=== PATIENT | female | born 1990 | race Two or more races ===

== ENCOUNTER 2021-11-21 17:00 | Observation (INO) | payer SELFPAY ==
[~2021-11-21] VITALS: Ht 165.1 cm; Wt 86.2 kg
[2021-11-21] MEDS ORDERED: TERBUTALINE SULFATE 1 MG/ML 1ML VIAL SC ONE (18:29)
[2021-11-21] MEDS ORDERED: LACTATED RINGER'S 1,000 ML IV ONE (18:30)
[2021-11-21] MEDS ORDERED: LACTATED RINGER'S 1,000 ML IV SCH (18:30)
[2021-11-21] MEDS: TERBUTALINE SULFATE 1 MG/ML 1ML VIAL SC SCH ×3 (18:33→19:46)
[2021-11-21 19:32] LABS: Basophils # (auto) 0 10 ^3/uL (0-0.2); Basophils % (auto) 0.2 % (0.0-2.0); Eosinophils # (auto) 0 10 ^3/uL (0-0.8); Eosinophils % (auto) 0.4 % (0.0-7.0); Hematocrit 37.5 % (36.0-46.0); Hemoglobin 12.1 g/dL (12.2-16.2); Lymphocytes # (auto) 2.9 10 ^3/uL (0.4-5.4); Lymphocytes % (auto) 25.5 % (10.0-50.0); Mean Corpuscular Hemoglobin 29.3 pg (28.0-32.0); Mean Corpuscular Hgb Conc. 32.3 g/dL (32.0-36.0); Mean Corpuscular Volume 90.8 fL (80.0-100.0); Monocytes # (auto) 0.8 10 ^3/uL (0-1.3); Monocytes % (auto) 7.3 % (0.0-12.0); Neutrophils # (auto) 7.5 10 ^3/uL (1.6-8.6); Neutrophils % (auto) 66.6 % (37.0-80.0); Nucleated Red Blood Cells % 0.1 %; Red Blood Cells 4.12 10^6/uL (4.0-5.20); Red Cell Distribution Width 13.6 % (11.8-14.3); White Blood Cell 11.3 10^3/uL (4.4-10.8)
[2021-11-21 19:39] LABS: INR 0.87 (0.9-1.15); Partial Thromboplastin Time 25.6 sec (24.6-33.4)
[2021-11-21 19:39] LABS: Amphetamine Screen, Urine NEGATIVE (NEGATIVE); Barbiturate Scree,Urine NEGATIVE (NEGATIVE); Benzodiazephine Screen, Urine NEGATIVE (NEGATIVE); Cannabinoid Screen, Urine NEGATIVE (NEGATIVE); Cocaine Screen, Urine NEGATIVE (NEGATIVE); Opiate Scree,Urine NEGATIVE (NEGATIVE); Phencyclidine Screen, Urine NEGATIVE (NEGATIVE)
[2021-11-21 19:45] LABS: Urine Bacteria MANY /hpf (None Seen); Urine Blood Negative /uL (Negative); Urine Mucus FEW (None Seen); Urine Specific Gravity 1.026 (1.001-1.035); Urine WBC 2 /hpf (0 - 5)
[2021-11-21 19:47] LABS: Albumin 2.6 g/dL (3.4-5.0); BUN/Creatinine Ratio 16.4; Calcium 8.7 mg/dL (8.5-10.1); Potassium 3.5 mmol/L (3.5-5.1)
[2021-11-21 19:49] LABS: Bilirubin, Total 0.2 mg/dL (0.2-1.0); Total Protein 6.4 g/dL (6.4-8.2)
[2021-11-21] MEDS ORDERED: PREN-96 PO (20:32)
[2021-11-23 08:06] LABS: RPR Non Reactive (Non Reactive)
== END 2021-11-21 21:30 | disposition home or self-care (01) ==
LOC: LDRP 17:00
PROVIDERS: ADMIT Obstetrics & Gynecology; ATTEND Obstetrics & Gynecology
DX: O62.9 Abnormality of forces of labor, unspecified (principal); Z20.822 Contact with and (suspected) exposure to COVID-19; Z3A.38 38 weeks gestation of pregnancy; Z98.891 History of uterine scar from previous surgery; Z79.899 Other long term (current) drug therapy
CPT/HCPCS: 36415; 59025; 76805; 80053; 80307; 81001; 81002; 85025; 85610; 85730; 86592; 86850; 86900; 86901; 87426; 94760; 96372; G0378; J3105

== ENCOUNTER 2021-11-25 07:53 | Observation (INO) | payer MEDICAID ==
[~2021-11-25 07:53] MED LIST: PREN-96 PO
== END 2021-11-25 12:15 | disposition home or self-care (01) ==
LOC: LDRP 07:53
PROVIDERS: ADMIT Obstetrics & Gynecology; ATTEND Obstetrics & Gynecology
DX: O36.8330 Maternal care for abnormalities of the fetal heart rate or rhythm, third trimester, not applicable or unspecified (principal); O62.9 Abnormality of forces of labor, unspecified; O26.893 Other specified pregnancy related conditions, third trimester; N89.8 Other specified noninflammatory disorders of vagina; R10.13 Epigastric pain; O12.03 Gestational edema, third trimester; Z3A.38 38 weeks gestation of pregnancy; Z98.891 History of uterine scar from previous surgery
CPT/HCPCS: 59025; 76818; 81002; 94760; G0378

== ENCOUNTER 2021-11-28 12:09 | Inpatient (IN) | payer MEDICAID ==
[2021-11-28] VITALS (12 sets, daily range): BP systolic 93–105; BP diastolic 45–57
[~2021-11-28] VITALS: Ht 162.6 cm; Wt 86.2 kg
[2021-11-28] MEDS ORDERED: ceFAZolin 1GM/50ML 50 ML IV ONE (14:00)
[2021-11-28] MEDS ORDERED: LACTATED RINGER'S 1,000 ML IV ONE (14:00)
[2021-11-28] MEDS ORDERED: TETRACAINE 1% INJ 2 ML VIAL IJ ONE (14:28)
[2021-11-28] MEDS ORDERED: MORPHINE SULF PF 5 MG/10 ML VIAL ONE (14:32)
[2021-11-28 14:58] LABS: Albumin 2.7 g/dL (3.4-5.0); BUN/Creatinine Ratio 13.8; Calcium 8.9 mg/dL (8.5-10.1); Potassium 3.5 mmol/L (3.5-5.1)
[2021-11-28 15:01] LABS: Bilirubin, Total 0.3 mg/dL (0.2-1.0); Total Protein 6.9 g/dL (6.4-8.2)
[2021-11-28 15:27] LABS: INR 0.87 (0.9-1.15); Partial Thromboplastin Time 26.4 sec (24.6-33.4)
[2021-11-28] MEDS ORDERED: LACT. RINGERS/OXYTOCIN 20UNITS 1,000 ML IV ONE (15:45)
[2021-11-28] MEDS ORDERED: ceFAZolin 1GM/50ML 50 ML IV SCH (15:45)
[2021-11-28] MEDS ORDERED: HYDR-4902 PO (15:45)
[2021-11-28] MEDS ORDERED: DOCU-94 PO (15:45)
[2021-11-28] MEDS ORDERED: IBUP800T27 PO (15:45)
[2021-11-28] MEDS ORDERED: ONDANSETRON HCL 4 MG/2 ML VIAL IV PRN (15:45)
[2021-11-28] MEDS ORDERED: GUM (CHEWING) 1 GUM CHEW CHEW ONE (15:45)
[2021-11-28] MEDS ORDERED: oxyTOCIN 10 UNIT/ML 10ML VIAL ONE (15:47)
[2021-11-28 15:54] LABS: Basophils # (auto) 0 10 ^3/uL (0-0.2); Eosinophils # (auto) 0 10 ^3/uL (0-0.8); Eosinophils % (auto) 0.3 % (0.0-7.0); Hemoglobin 12.7 g/dL (12.2-16.2); Lymphocytes # (auto) 2.2 10 ^3/uL (0.4-5.4); Monocytes # (auto) 0.7 10 ^3/uL (0-1.3); Nucleated Red Blood Cells % 0.1 %; White Blood Cell 10.3 10^3/uL (4.4-10.8)
[2021-11-28] MEDS ORDERED: HYDROmorphone HCL 2 MG/ML VL/or syr IV PRN (16:00)
[2021-11-28] MEDS ORDERED: KETOROLAC TROMETH 30 MG/ML 1ML VIAL IV PRN (16:00)
[2021-11-28] MEDS ORDERED: diphenhdrAMINE HCL 50 MG/1 ML VL IV PRN (16:00)
[2021-11-28] MEDS ORDERED: NALOXONE HCL 0.4 MG/ML VIAL IV PRN (16:00)
[2021-11-28] MEDS ORDERED: NALBUPHINE HCL 10 MG/1ml INJECTION SUBCUT ONE (16:00)
[2021-11-28] MEDS ORDERED: DexAMETHasone SOD PHOS 10MG/1ML VIAL INJ IV PRN (16:00)
[2021-11-28 16:04] LABS: Basophils % (auto) 0.2 % (0.0-2.0); Hematocrit 38.7 % (36.0-46.0); Mean Corpuscular Hemoglobin 29.5 pg (28.0-32.0); Mean Corpuscular Hgb Conc. 32.7 g/dL (32.0-36.0); Mean Corpuscular Volume 90.1 fL (80.0-100.0); Neutrophils # (auto) 7.4 10 ^3/uL (1.6-8.6); Neutrophils % (auto) 71.5 % (37.0-80.0); Red Cell Distribution Width 13.6 % (11.8-14.3)
[2021-11-28 16:08] LABS: Urine Bacteria MOD /hpf (None Seen); Urine Blood Negative /uL (Negative); Urine Specific Gravity 1.014 (1.001-1.035); Urine WBC <1 /hpf (0 - 5)
[2021-11-28 16:13] LABS: Amphetamine Screen, Urine NEGATIVE (NEGATIVE); Barbiturate Scree,Urine NEGATIVE (NEGATIVE); Benzodiazephine Screen, Urine NEGATIVE (NEGATIVE); Cannabinoid Screen, Urine NEGATIVE (NEGATIVE); Cocaine Screen, Urine NEGATIVE (NEGATIVE); Opiate Scree,Urine NEGATIVE (NEGATIVE); Phencyclidine Screen, Urine NEGATIVE (NEGATIVE)
[2021-11-28] MEDS: LACTATED RINGER'S 1,000 ML IV SCH (16:55)
[2021-11-28] MEDS ORDERED: SODIUM CITR/CITRIC ACID ORAL SOLN 30 ML PO SCH (18:00)
[2021-11-28] MEDS: ONDANSETRON HCL 4 MG/2 ML VIAL IV PRN ×2 (18:09→23:43)
[2021-11-28] MEDS ORDERED: ACETAMINOPHEN IV 1000 MG/100ML (10MG/ML) IV PRN (18:30)
[2021-11-28] MEDS: ceFAZolin 1GM/50ML 50 ML IV SCH (22:23)
[2021-11-28 23:31] LABS: Basophils # (auto) 0 10 ^3/uL (0-0.2); Basophils % (auto) 0.1 % (0.0-2.0); Eosinophils # (auto) 0 10 ^3/uL (0-0.8); Eosinophils % (auto) 0.1 % (0.0-7.0); Hematocrit 37.2 % (36.0-46.0); Lymphocytes # (auto) 1.6 10 ^3/uL (0.4-5.4); Lymphocytes % (auto) 11.8 % (10.0-50.0); Mean Corpuscular Hemoglobin 29.3 pg (28.0-32.0); Mean Corpuscular Hgb Conc. 32.4 g/dL (32.0-36.0); Mean Corpuscular Volume 90.5 fL (80.0-100.0); Monocytes # (auto) 0.7 10 ^3/uL (0-1.3); Monocytes % (auto) 5.3 % (0.0-12.0); Neutrophils # (auto) 11.1 10 ^3/uL (1.6-8.6); Neutrophils % (auto) 82.7 % (37.0-80.0); Red Blood Cells 4.11 10^6/uL (4.0-5.20); Red Cell Distribution Width 13.4 % (11.8-14.3); White Blood Cell 13.4 10^3/uL (4.4-10.8)
[2021-11-29] VITALS (19 sets, daily range): BP systolic 89–114; BP diastolic 41–100
[2021-11-29 06:06] LABS: Rubella Antibodies, IgG 6.64 index (Immune >0.99)
[2021-11-29] MEDS ORDERED: BISACODYL 10 MG RECT SUPP PR PRN (06:30)
[2021-11-29] MEDS: ceFAZolin 1GM/50ML 50 ML IV SCH ×2 (06:42→14:55)
[2021-11-29] MEDS: LACTATED RINGER'S 1,000 ML IV SCH ×4 (06:45→22:59)
[2021-11-29 07:01] LABS: Basophils # (auto) 0 10 ^3/uL (0-0.2); Basophils % (auto) 0.2 % (0.0-2.0); Eosinophils # (auto) 0 10 ^3/uL (0-0.8); Eosinophils % (auto) 0.3 % (0.0-7.0); Hematocrit 38.5 % (36.0-46.0); Hemoglobin 12.9 g/dL (12.2-16.2); Lymphocytes % (auto) 16.5 % (10.0-50.0); Mean Corpuscular Hgb Conc. 33.6 g/dL (32.0-36.0); Mean Corpuscular Volume 89.4 fL (80.0-100.0); Monocytes # (auto) 0.9 10 ^3/uL (0-1.3); Monocytes % (auto) 7.3 % (0.0-12.0); Neutrophils # (auto) 9.3 10 ^3/uL (1.6-8.6); Neutrophils % (auto) 75.7 % (37.0-80.0); Red Blood Cells 4.31 10^6/uL (4.0-5.20); Red Cell Distribution Width 13.4 % (11.8-14.3); White Blood Cell 12.3 10^3/uL (4.4-10.8)
[2021-11-29 07:07] LABS: RPR Non Reactive (Non Reactive)
[2021-11-29] MEDS: IBUPROFEN 800 MG TAB PO PRN ×2 (09:39→21:26)
[2021-11-29] MEDS: DOCUSATE CALCIUM 240 MG CAP PO SCH (09:39)
[2021-11-29] MEDS: DOCUSATE SOD 100 MG CAP PO SCH ×2 (09:39→22:06)
[2021-11-29] MEDS: SIMETHICONE 80 MG CHEWABLE TABLET PO SCH ×3 (11:47→22:07)
[2021-11-29] MEDS: HYDROcodone-ACET 5/325MG TAB PO PRN (18:50)
[2021-11-30 03:30] VITALS: BP 112/55
[2021-11-30] MEDS: HYDROcodone-ACET 5/325MG TAB PO PRN (03:30)
[2021-11-30] MEDS: SIMETHICONE 80 MG CHEWABLE TABLET PO SCH ×4 (06:06→22:18)
[2021-11-30] MEDS: LACTATED RINGER'S 1,000 ML IV SCH ×2 (06:59→14:59)
[2021-11-30 07:00] VITALS: BP 111/58
[2021-11-30] MEDS: DOCUSATE SOD 100 MG CAP PO SCH ×2 (09:54→22:18)
[2021-11-30] MEDS: DOCUSATE CALCIUM 240 MG CAP PO SCH (09:54)
[2021-11-30] MEDS: IBUPROFEN 800 MG TAB PO PRN ×2 (09:56→17:43)
[2021-11-30 11:00] VITALS: BP 112/60
[2021-11-30 15:00] VITALS: BP 114/59
[2021-11-30 19:30] VITALS: BP 95/59
[2021-11-30] MEDS ORDERED: TETANUS-DIPTH-ACEL PERTUSSIS 0.5ML SYR Tdap IM ONE (19:30)
[2021-11-30 23:00] VITALS: BP 102/53
[2021-12-01] MEDS: IBUPROFEN 800 MG TAB PO PRN (02:01)
[2021-12-01 03:00] VITALS: BP 99/49
[2021-12-01] MEDS: HYDROcodone-ACET 5/325MG TAB PO PRN ×2 (03:28→08:55)
[2021-12-01 07:15] VITALS: BP 105/64
[2021-12-01] MEDS: SIMETHICONE 80 MG CHEWABLE TABLET PO SCH (07:21)
[2021-12-01] MEDS: DOCUSATE CALCIUM 240 MG CAP PO SCH (09:50)
[2021-12-01] MEDS: DOCUSATE SOD 100 MG CAP PO SCH (09:50)
[2021-12-01 10:59] VITALS: BP 103/62
== END 2021-12-01 12:46 | disposition home or self-care (01) | DRG 540 ==
LOC: UNDOADMOB 12:09 → LDRP 12:09 → OBSVTOIN 13:50 → INTOOBSV 13:50 → LDRP 13:56 → OBSVTOIN 13:56 → LDRP 11-29 10:02
PROVIDERS: ADMIT Obstetrics & Gynecology; ATTEND Obstetrics & Gynecology
PROC: 10D00Z1 Extraction of Products of Conception, Low, Open Approach (ICD-10-PCS; principal; 2021-11-28 14:44)
DX: O34.211 Maternal care for low transverse scar from previous cesarean delivery (principal); Z20.822 Contact with and (suspected) exposure to COVID-19; Z37.0 Single live birth; Z3A.39 39 weeks gestation of pregnancy
CPT/HCPCS: 36415; 59025; 76805; 80053; 80307; 81001; 81002; 85025; 85610; 85730; 86592; 86703; 86762; 86850; 86900; 86901; 87340; 90715; 94760; 94762; 96360; 96361; 96372; 96374; 96375; G0378; J0131; J0690; J2405; J2590